=== PATIENT | female | born 1960 | race Caucasian/White ===

== ENCOUNTER 2017-05-05 10:25 | Emergency (ER) | payer OTHER ==
[2017-05-05 10:40] VITALS: BP 165/105
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
== END 2017-05-05 12:55 | disposition home or self-care (01) ==
LOC: ER 10:25
DX: S00.81XA Abrasion of other part of head, initial encounter (principal); S40.812A Abrasion of left upper arm, initial encounter; S20.211A Contusion of right front wall of thorax, initial encounter; R51 Headache; R07.81 Pleurodynia; V87.7XXA Person injured in collision between other specified motor vehicles (traffic), initial encounter; M79.602 Pain in left arm
CPT/HCPCS: 71020; 99284